=== PATIENT | female | born 1990 | race American Indian/Alaskan Native ===

== ENCOUNTER 2017-05-12 12:20 | Emergency (ER) | payer MEDICAID ==
[2017-05-12 12:42] VITALS: BP 114/75
[2017-05-12 13:49] LABS: Bilirubin,Urine TNR (Negative)
[2017-05-12 13:50] LABS: Blood,Urine TNR (Negative); Ketones,Urine TNR mg/dL (Negative); PH,Urine TNR (5.0-7.0)
[2017-05-12 13:51] LABS: Leukocyte Esterase,Urine TNR (Negative); Nitrite,Urine TNR (Negative); Protein,Urine TNR mg/dL (Negative); RBC,Urine TNR /HPF (0.0-6.0); Renal Epithelial Cells,Urine TNR /LPF; Urobilinogen,Urine TNR mg/dL (<2.0); WBC,Urine TNR /HPF (0.0-6.0)
[2017-05-12 13:52] LABS: Bacteria,Urine TNR /HPF (Negative); Fatty Casts,Urine TNR /LPF; Granular Casts,Urine TNR /LPF; Mucus,Urine TNR /HPF; Red Blood Cell Casts,Urine TNR /LPF; Sperm,Urine TNR /HPF (NP); Trichomonas,Urine TNR /HPF; Uric Acid Crystals,Urine TNR; Waxy Casts,Urine TNR /LPF
[2017-05-12 13:59] LABS: Anion Gap 16 mmol/L; Blood Urea Nitrogen 4 mg/dL (7-17); Calcium 9.1 mg/dL (8.4-10.2); Carbon Dioxide 23 mmol/L (22-30); Chloride 99.3 mmol/L (98-107); Glucose 86 mg/dL (65-100); Potassium 3.6 mmol/L (3.6-5.0); Sodium 135 mmol/L (137-145)
[2017-05-12 14:01] LABS: Basophils % (Auto) 0.5 % (0.0-1.8); Hematocrit 34.9 % (30.3-42.9); Hemoglobin 11.7 gm/dl (10.1-14.3); Mean Corpuscular HGB Conc 34 % (30-34); Mean Corpuscular Hemoglobin 31 pg (28-32); Mean Corpuscular Volume 91 fl (79-97); Platelet Count 183 K/mm3 (140-440); Red Blood Count 3.84 M/mm3 (3.65-5.03); Red Cell Distribution Width 13.3 % (13.2-15.2); White Blood Count 6.1 K/mm3 (4.5-11.0)
--- NOTE | 2017-05-12 15:30 | Ultrasound Report ---
COMPLETE OB ULTRASOUND: well-being. No motion on clinical exam. Gestation: Bray Position: Cephalic Amniotic Fluid: WNL CATHY = N/A cm Placenta: Posterior Placental Grade: 0 Heart Rate: 145 BPM Cervical length: 3.3 cm (Normal > 3 cm) X It is too early for a anatomical survey BPD: 3.6 cm = 17 w 0 d HC: 13.0 cm = 16 w 5 d AC: 10.8 cm = 16 w 5 d FL: 2.3 cm = 17 w 0 d HC/AC Ratio: 1.21 Cephalic Index: 85.2 Estimated Weight: 170 grams LMP: Uncertain Clinical age = 17 w 2 d EDC: 10/18/17 US Gest. Age = 16 w 6 d EDC: 10/21/17
--- NOTE | 2017-05-12 17:34 | Emergency Department Report ---
Entered by RITA HUDSON, acting as scribe for ADAM MARCIAL PA. ED Female HPI - General Chief complaint: Medical Clearance Stated complaint: 17 WKS PREG/NO MOVEMENT Time Seen by Provider: 05/12/17 13:17 Source: patient Mode of arrival: Ambulatory Limitations: No Limitations - History of Present Illness Initial comments: 26 y/o female that is 17 weeks with a PMHx of ovarian cysts presents to the ED c/o no movement that began 2 days ago. Patient states she was sent to the ED by her SERVICES ACCOUNT MANAGER, because there was no provider at the office at the time to evaluate her. Denies any pain, vaginal discharge, vaginal bleeding, dysuria, urinary urgency and frequency, hematuria, fever, chills, back pain, abdominal pain, nausea, vomiting, and diarrhea. Notes she had 2 previous normal US and blood work done at her OB's office. Notes her OB is Dr. Cardenas at [facility]. Reports she had a workup done for STDs, which was normal. NKDA. WOODS Complaint: other (no movement) Onset/Timin -: days(s) Severity scale (0 -10): 0 Improves with: none Worsens with: none Are you Now?: Yes Last Menstrual Period: 11/08/16 EDC: 08/15/17 Associated Symptoms: denies other symptoms. denies: vaginal discharge, vaginal bleeding, abdominal pain, nausea/vomiting, fever/chills, headaches, loss of appetite, dysuria, hematuria, rash, seizure, shortness of breath, syncope, weakness - Related Data Sexually active: Yes Home Medications Medication Instructions Recorded Confirmed Last Taken Ciprofloxacin HCl [Ciprofloxacin 500 mg PO BID 12/08/15 12/08/15 12/07/15 TAB] Allergies Allergy/AdvReac Type Severity Reaction Status Date / Time No Known Allergies Allergy Verified 05/12/17 12:37 ED Review of Systems Comment: All other systems reviewed and negative Constitutional: denies: chills, fever Eyes: denies: eye pain, eye discharge, vision change ENT: denies: ear pain, throat pain Respiratory: denies: cough, orthopnea, shortness of breath, SOB with exertion, SOB at rest, stridor, wheezing Cardiovascular: denies: chest pain, palpitations, dyspnea on exertion, orthopnea , edema, syncope, paroxysmal nocturnal dyspnea Endocrine: no symptoms reported Gastrointestinal: denies: abdominal pain, nausea, vomiting, diarrhea, constipation, hematemesis, melena, hematochezia Genitourinary: denies: urgency, dysuria, frequency, discharge Musculoskeletal: denies: back pain, joint swelling, arthralgia Skin: denies: rash, lesions Neurological: denies: headache, weakness, numbness, paresthesias Psychiatric: denies: anxiety, depression Hematological/Lymphatic: denies: easy bleeding, easy bruising ED Past Medical Hx - Past Medical History Previous Medical History?: No Hx Hypertension: No Hx CVA: No Hx Heart Attack/AMI: No Hx Congestive Heart Failure: No Hx Diabetes: No Hx Deep Vein Thrombosis: No Hx Pulmonary Embolism: No Hx GERD: No Hx Liver Disease: No Hx Renal Disease: No Hx Sickle Cell Disease: No Hx Arthritis: No Hx Headaches / Migraines: No Hx Seizures: No Hx Kidney Stones: No Hx Psychiatric Treatment: No Hx Asthma: No Hx COPD: No Hx Tuberculosis: No Hx Dementia: No Hx HIV: No - Surgical History Past Surgical History?: No Hx Coronary Stent: No Hx Open Heart Surgery: No Hx Pacemaker: No Hx Internal Defibrillator: No Hx Cholecystectomy: No Hx Appendectomy: No Hx Breast Surgery: No - Family History Family history: no significant - Social History Smoking Status: Never Smoker Substance Use Type: None Other Social History: - Medications Home Medications: Home Medications Medication Instructions Recorded Confirmed Last Taken Type Ciprofloxacin HCl [Ciprofloxacin 500 mg PO BID 12/08/15 12/08/15 12/07/15 History TAB] ED Physical Exam - General Limitations: No Limitations General appearance: alert, in no apparent distress - Head Head exam: Present: atraumatic, normocephalic, normal inspection - Eye Eye exam: Present: normal appearance, PERRL, EOMI Pupils: Present: normal accommodation - ENT ENT exam: Present: normal exam, normal orophraynx, mucous membranes moist, TM's normal bilaterally, normal external ear exam - Neck Neck exam: Present: normal inspection, full ROM. Absent: tenderness, meningismus, lymphadenopathy, thyromegaly - Respiratory Respiratory exam: Present: normal lung sounds bilaterally. Absent: respiratory distress, wheezes, rales, rhonchi, stridor, chest wall tenderness, accessory muscle use, decreased breath sounds - Cardiovascular Cardiovascular Exam: Present: regular rate, normal rhythm, normal heart sounds. Absent: systolic murmur, diastolic murmur - GI/Abdominal GI/Abdominal exam: Present: soft, tenderness (RT lower pelvic area tenderness), normal bowel sounds. Absent: distended, guarding, rebound, rigid - External exam: Present: normal external exam. Absent: erythema, swelling, lesions, lacerations, bleeding Speculum exam: Present: normal speculum exam. Absent: erythema, vaginal discharge, cervical discharge, vaginal bleeding, foreign body, tissue, laceration Bi-manual exam: Present: normal bi-manual exam, uterine enlargement. Absent: cervical motion tendernes, adnexal tenderness, adnexal mass, uterine tenderness - Expanded Exam Expanded Female exam: Absent: vaginal laceration, tissue present in vagina, herpetic lesions, vulvar erythema, vulvar tenderness, foreign body External exam: Present: normal Amniotic fluid: Present: none Speculum exam: Present: cervical OS closed - Extremities Exam Extremities exam: Present: normal inspection, full ROM, normal capillary refill. Absent: tenderness, pedal edema, joint swelling, calf tenderness - Back Exam Back exam: Present: normal inspection, full ROM. Absent: tenderness, CVA tenderness (R), CVA tenderness (L), muscle spasm, paraspinal tenderness, vertebral tenderness, rash noted - Neurological Exam Neurological exam: Present: alert, oriented X3, normal gait, reflexes normal. Absent: motor sensory deficit - Psychiatric Psychiatric exam: Present: normal affect, normal mood - Skin Skin exam: Present: warm, dry, intact, normal color. Absent: rash ED Course Vital Signs 05/12/17 12:37 Temperature 98.8 F Pulse Rate 77 Respiratory 20 Rate Blood Pressure 114/75 O2 Sat by Pulse 100 Oximetry - Reevaluation(s) Reevaluation #1: 05/12/17 13:57 Patient awaiting ultrasound. She is stable and lab work ordered and pending Reevaluation #2: 05/12/17 17:20 She has stable ultrasound was done and report given to patient. heart tone is 150 8 bpm via handheld Doppler. heart tones via ultrasound is a 1 45 bpm. ED Medical Decision Making - Lab Data Result diagrams: 05/12/17 13:30 05/12/17 13:30 Lab Results 05/12/17 05/12/17 05/12/17 Range/Units 13:25 13:30 13:30 WBC 6.1 (4.5-11.0) K/mm3 RBC 3.84 (3.65-5.03) M/mm3 Hgb 11.7 (10.1-14.3) gm/dl Hct 34.9 (30.3-42.9) % MCV 91 (79-97) fl MCH 31 (28-32) pg MCHC 34 (30-34) % RDW 13.3 (13.2-15.2) % Plt Count 183 (140-440) K/mm3 Lymph % (Auto) 22.0 (13.4-35.0) % [place] % (Auto) 11.4 H (0.0-7.3) % Eos % (Auto) 3.0 (0.0-4.3) % Baso % (Auto) 0.5 (0.0-1.8) % Lymph # 1.3 (1.2-5.4) K/mm3 [place] # 0.7 (0.0-0.8) K/mm3 Eos # 0.2 (0.0-0.4) K/mm3 Baso # 0.0 (0.0-0.1) K/mm3 Seg Neutrophils % 63.1 (40.0-70.0) % Seg Neutrophils # 3.8 (1.8-7.7) K/mm3 Sodium 135 L (137-145) mmol/L Potassium 3.6 (3.6-5.0) mmol/L Chloride 99.3 (98-107) mmol/L Carbon Dioxide 23 (22-30) mmol/L Anion Gap 16 mmol/L BUN 4 L (7-17) mg/dL Creatinine 0.5 L (0.7-1.2) mg/dL Estimated GFR > 60 ml/min BUN/Creatinine Ratio 8.00 % Glucose 86 (65-100) mg/dL Calcium 9.1 (8.4-10.2) mg/dL HCG, Quant (0-4) mIU/mL Urine Color TNR Urine Turbidity TNR Urine pH TNR Ur Specific Beauty TNR Urine Protein TNR Urine Glucose (UA) TNR Urine Ketones TNR Urine Blood TNR Urine Nitrite TNR Ur Reducing Substances TNR Urine Bilirubin TNR Urine Ictotest TNR Urine Urobilinogen TNR Ur Leukocyte Esterase TNR Urine WBC (Auto) TNR Urine RBC (Auto) TNR U Epithel Cells (Auto) TNR Urine Bacteria (Auto) TNR Urine WBC Clumps TNR Ur Transition Epith Cell TNR Ur Renal Epithelial Cell TNR Calcium Carbonate Cryst TNR Calcium Phosphate Cryst TNR Calcium Oxalate Crystal TNR Cystine Crystals TNR Uric Acid Crystals TNR Triple Phos Crystals TNR Tyrosine Crystals TNR Other Crystals TNR Amorphous Crystals TNR Epithelial Casts TNR Fatty Casts TNR Hyaline Casts TNR Granular Casts TNR Waxy Casts TNR Broad Casts TNR RBC Casts TNR WBC Casts TNR Other Casts TNR Urine Mucus TNR Urine Trichomonas TNR Ur Yeast w Hyphae TNR Urine Yeast (Budding) TNR Urine Sperm TNR 05/12/17 Range/Units 13:30 WBC (4.5-11.0) K/mm3 RBC (3.65-5.03) M/mm3 Hgb (10.1-14.3) gm/dl Hct (30.3-42.9) % MCV (79-97) fl MCH (28-32) pg MCHC (30-34) % RDW (13.2-15.2) % Plt Count (140-440) K/mm3 Lymph % (Auto) (13.4-35.0) % [place] % (Auto) (0.0-7.3) % Eos % (Auto) (0.0-4.3) % Baso % (Auto) (0.0-1.8) % Lymph # (1.2-5.4) K/mm3 [place] # (0.0-0.8) K/mm3 Eos # (0.0-0.4) K/mm3 Baso # (0.0-0.1) K/mm3 Seg Neutrophils % (40.0-70.0) % Seg Neutrophils # (1.8-7.7) K/mm3 Sodium (137-145) mmol/L Potassium (3.6-5.0) mmol/L Chloride (98-107) mmol/L Carbon Dioxide (22-30) mmol/L Anion Gap mmol/L BUN (7-17) mg/dL Creatinine (0.7-1.2) mg/dL Estimated GFR ml/min BUN/Creatinine Ratio % Glucose (65-100) mg/dL Calcium (8.4-10.2) mg/dL HCG, Quant 59517 H (0-4) mIU/mL Urine Color Urine Turbidity Urine pH Ur Specific Beauty Urine Protein Urine Glucose (UA) Urine Ketones Urine Blood Urine Nitrite Ur Reducing Substances Urine Bilirubin Urine Ictotest Urine Urobilinogen Ur Leukocyte Esterase Urine WBC (Auto) Urine RBC (Auto) U Epithel Cells (Auto) Urine Bacteria (Auto) Urine WBC Clumps Ur Transition Epith Cell Ur Renal Epithelial Cell Calcium Carbonate Cryst Calcium Phosphate Cryst Calcium Oxalate Crystal Cystine Crystals Uric Acid Crystals Triple Phos Crystals Tyrosine Crystals Other Crystals Amorphous Crystals Epithelial Casts Fatty Casts Hyaline Casts Granular Casts Waxy Casts Broad Casts RBC Casts WBC Casts Other Casts Urine Mucus Urine Trichomonas Ur Yeast w Hyphae Urine Yeast (Budding) Urine Sperm - Radiology Data Radiology results: report reviewed U/S OB greater than 14 weeks revealed patient with single gestation, cephalic position, I'm them amniotic fluid normal heart rate is 1 45 bpm estimated weight is 170 g clinical age that 17 weeks and 2 days estimated date of delivery is 10/18/2017 - Medical Decision Making . ED Disposition Clinical Impression: Intrauterine , Normal obstetric ultrasound scan in second trimester, Confirm cardiac activity using ultrasound Disposition: DC-01 TO HOME OR SELFCARE Is pt being admited?: No Does the pt Need Aspirin: No Condition: Stable Instructions: (ED) Additional Instructions: Follow up with SERVICES ACCOUNT MANAGER tomorrow Increase your fluid intake Referrals: [facility] [Provider Group] - 05/13/17 Forms: Accompanied Note, Work/School Release Form(ED) This documentation as recorded by the TRISTAN moyer JASMINE,accurately reflects the service I personally performed and the decisions made by me,ADAM MARCIAL PA.
== END 2017-05-12 17:38 | disposition home or self-care (01) ==
LOC: ED 12:20
DX: O36.8120 Decreased fetal movements, second trimester, not applicable or unspecified (principal); Z3A.17 17 weeks gestation of pregnancy
CPT/HCPCS: 36415; 76805; 80048; 81001; 84702; 85025

== ENCOUNTER 2017-07-29 19:15 | Observation (INO) | payer MEDICAID ==
[2017-07-29 20:44] LABS: Bacteria,Urine 2+ /HPF (Negative); Bilirubin,Urine NEG (Negative); Blood,Urine NEG (Negative); Ketones,Urine NEG (Negative); Leukocyte Esterase,Urine TR (Negative); Nitrite,Urine POS (Negative); Protein,Urine <15 mg/dL mg/dL (Negative); Urobilinogen,Urine < 2.0 mg/dL (<2.0)
[2017-07-29] MEDS ORDERED: LACTATED RINGERS 1,000 ML IV ONE (20:47)
[2017-07-29] MEDS ORDERED: TYLENOL PO PRN (21:32)
[2017-07-29] MEDS ORDERED: TYLENOL PO ONE (21:36)
[2017-07-29 22:05] LABS: Basophils % (Auto) 1.7 % (0.0-1.8); Eosinophils % (Auto) 0.6 % (0.0-4.3); Hematocrit 31.5 % (30.3-42.9); Hemoglobin 10.6 gm/dl (10.1-14.3); Mean Corpuscular HGB Conc 34 % (30-34); Mean Corpuscular Hemoglobin 30 pg (28-32); Mean Corpuscular Volume 90 fl (79-97); Platelet Count 156 K/mm3 (140-440); Red Blood Count 3.51 M/mm3 (3.65-5.03); Red Cell Distribution Width 13.9 % (13.2-15.2); White Blood Count 7.8 K/mm3 (4.5-11.0)
[2017-07-29] MEDS ORDERED: COLACE PO PRN (22:51)
[2017-07-29] MEDS ORDERED: ZOFRAN IV PRN (22:51)
[2017-07-29] MEDS ORDERED: AMBIEN PO PRN (22:51)
[2017-07-29] MEDS ORDERED: ALUM-MAG HYDROX-SIMETH 200-200-20MG/5ML PO PRN (22:51)
--- NOTE | 2017-07-29 23:07 | History and Physical Report ---
History of Present Illness Date of examination: 07/29/17 Date of admission: 07/29/17 22:06 Chief complaint: pelvic pain and body aches History of present illness: Pt presents with the above sx. + nitrates and temp noted in triage. Pt admitted for treatment of complicated uti vs pyelo. EDC Calculations LMP: 10/18/2017 EDC Confirmation: 10/18/2017 Gestational Age: 10 weeks Past History : 3 Term Births: 2 Premature Births: 0 Living Children: 2 Para: 2 Mult. Births: 0 Prev : 0 Prev. attempt? 0 Aborta: 0 Elect. Ab: 0 Spont. Ab: 0 Ectopics: 0 # 1 Delivery date: 06/11/2008 Weeks Gestation: 40.5 labor: no Delivery type: Hours of labor: 9 Anesthesia type: none Delivery location: [facility] Sex: Male weight: 7-4 Name: Dwight Comments: Induction # 2 Delivery date: 08/10/2010 Weeks Gestation: 39 Delivery type: Hours of labor: 4 Anesthesia type: none Delivery location: 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 of genital herpes: no Partner hx. of genital herpes: no Genetic History Congenital Heart Defect: Mom: no Dad: no Sonia Disease: Mom: no Dad: no Thalassemia Mom: no Dad: no Neural Tube Defect Mom: no Dad: no Down's Syndrome Mom: no Dad: no Kwame-Sachs Mom: no Dad: no Sickle Cell Disease/Trait Mom: yes Dad: no Comments: Trait Hemophilia Mom: no Dad: no Muscular Dystrophy Mom: no Dad: no Cystic Fibrosis Mom: no Dad: no [place] Chorea Mom: no Dad: no Mental Retardation Mom: no Dad: no Fragile X Mom: no Dad: no Other Genetic/Chromosomal Disorder Mom: no Dad: no Child w/other defect Mom: no Dad: no Enviromental Exposures Xray Exposure: no Medication, drug, or alcohol use since LMP: no Chemical/Other Exposure: no Exposure to Cat Liter: no Active Medications (reviewed today): VITAMIN TABS ( VIT-FE FUMARATE-FA TABS) Current Allergies (reviewed today): No known allergies Past History Past Medical History: no pertinent history Past Surgical History: other (breast lump removed) 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: 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 PAP smear Social history: no significant social history - Obstetrical History Expected Date of Delivery: 10/18/17 Actual Gestation: 28 Week(s) 3 Day(s) : 3 Para: 2 Number of Living Children: 2 Medications and Allergies Allergies Allergy/AdvReac Type Severity Reaction Status Date / Time No Known Allergies Allergy Verified 05/12/17 12:37 Home Medications Medication Instructions Recorded Confirmed Last Taken Type Ciprofloxacin HCl [Ciprofloxacin 500 mg PO BID 12/08/15 12/08/15 12/07/15 History TAB] Active Meds: Active Medications Acetaminophen (Tylenol) 650 mg PO Q4H PRN PRN Reason: Pain MILD(1-3)/Fever >100.5/MARCELO Al Hydrox/Mg Hydrox/Simethicone (Alum-Mag Hydrox-Simeth [id number]/5ml) 30 ml PO Q6H PRN PRN Reason: Indigestion Docusate Sodium (Colace) 100 mg PO Q12H PRN PRN Reason: Constipation Lactated Ringer's (Lactated Ringers) 1,000 mls @ 125 mls/hr IV DIRECT ALBER Ceftriaxone Sodium (Rocephin/Ns 1 Gm/50 Ml) 1 gm in 50 mls @ 100 mls/hr IV Q24HR ALBER PRN Reason: Protocol Multivitamins/Iron/Calcium ( Vitamin) 1 each PO QDAY [facility] Ondansetron HCl (Zofran) 4 mg IV Q6H PRN PRN Reason: Nausea And Vomiting Zolpidem Tartrate (Ambien) 10 mg PO ONCE PRN PRN Reason: Sleep - Vital Signs Vital signs: Vital Signs Temp Pulse Resp BP Pulse Ox 100.3 F H 111 H 16 110/65 88 07/29/17 19:38 07/29/17 19:38 07/29/17 19:38 07/29/17 19:38 07/29/17 19:38 Temp Pulse Resp BP Pulse Ox 100.4 F H 101 H 16 110/57 81 L 07/29/17 22:55 07/29/17 20:51 07/29/17 19:38 07/29/17 20:51 07/29/17 20:40 Results Result Diagrams: 07/29/17 20:30 Abnormal lab results 07/29/17 Range/Units 20:30 RBC 3.51 L (3.65-5.03) M/mm3 Lymph % (Auto) 6.0 L (13.4-35.0) % [place] % (Auto) 13.3 H (0.0-7.3) % Lymph # 0.5 L (1.2-5.4) K/mm3 [place] # 1.0 H (0.0-0.8) K/mm3 Seg Neutrophils % 78.4 H (40.0-70.0) % All other labs normal. Assessment and Plan - Patient Problems (1) UTI (urinary tract infection) during Current Visit: Yes Status: Acute Qualifiers: Trimester: third trimester Qualified Code(s): O23.43 - Unspecified infection of urinary tract in , third trimester Plan to address problem: -send urine cx. Previously had e.coli sensitive to rocephine so started at this time -d/c home with suppressive meds for duration of after 24-48 hours afebrile - monitoring (2) Fever Current Visit: No Status: Acute
[2017-07-29] MEDS: LACTATED RINGERS 1,000 ML IV SCH ×2 (23:09→23:42)
[2017-07-29] MEDS: ROCEPHIN/NS 1 GM/50 ML 1 GM/50 ML BAG IV SCH (23:41)
--- NOTE | 2017-07-30 06:38 | Progress Note ---
Assessment and Plan - Patient Problems (1) Gestational diabetes Onset Date: Unknown Current Visit: Yes Status: Acute Qualifiers: Trimester: third trimester Plan to address problem: Pt is diet controlled. GDM diet ordered. Will schedule BS checks as per her at home regime. (2) UTI (urinary tract infection) during Onset Date: ~07/30/17 Current Visit: Yes Status: Acute Qualifiers: Trimester: third trimester Qualified Code(s): O23.43 - Unspecified infection of urinary tract in , third trimester Plan to address problem: Pt states she is feeling much better No c/o voiced Pt has not had a recorded fever since 2254. Afebrile now VSS. . FHR Cat 1 No CTX recorded. Will cont Rocephin as ordered IUP @ 28 weeks UTI; GDM Consult with . Will start NST qshift; AM care; GDM diet ordered. Subjective - Subjective Date of service: 07/30/17 (pt states she is feeling much better) Principal diagnosis: IUP 28w4d; UTI;GDM(diet control) Patient reports: movement normal Objective - Vital Signs Vital Signs: Vital Signs - 12hr 07/29/17 07/29/17 07/29/17 19:38 19:40 19:44 Temperature 100.3 F H Pulse Rate 111 H 131 H 110 H Respiratory 16 Rate Blood Pressure 110/65 O2 Sat by Pulse 88 95 92 Oximetry 07/29/17 07/29/17 07/29/17 19:46 19:49 19:51 Temperature Pulse Rate 107 H 112 H 112 H Respiratory Rate Blood Pressure O2 Sat by Pulse 96 99 98 Oximetry 07/29/17 07/29/17 07/29/17 19:55 20:00 20:03 Temperature Pulse Rate 112 H 108 H 121 H Respiratory Rate Blood Pressure O2 Sat by Pulse 96 94 95 Oximetry 07/29/17 07/29/17 07/29/17 20:05 20:08 20:13 Temperature Pulse Rate 131 H 136 H 113 H Respiratory Rate Blood Pressure O2 Sat by Pulse 95 95 94 Oximetry 07/29/17 07/29/17 07/29/17 20:14 20:15 20:16 Temperature Pulse Rate 121 H 125 H 127 H Respiratory Rate Blood Pressure O2 Sat by Pulse 93 94 92 Oximetry 07/29/17 07/29/17 07/29/17 20:17 20:19 20:21 Temperature Pulse Rate 102 H 115 H 107 H Respiratory Rate Blood Pressure O2 Sat by Pulse 92 90 82 L Oximetry 07/29/17 07/29/17 07/29/17 20:23 20:24 20:25 Temperature Pulse Rate 112 H 112 H 125 H Respiratory Rate Blood Pressure O2 Sat by Pulse 82 L 83 L 87 Oximetry 07/29/17 07/29/17 07/29/17 20:30 20:31 20:33 Temperature Pulse Rate 108 H 110 H 214 H Respiratory Rate Blood Pressure O2 Sat by Pulse 96 81 L 82 L Oximetry 07/29/17 07/29/17 07/29/17 20:34 20:35 20:36 Temperature Pulse Rate 156 H 150 H 133 H Respiratory Rate Blood Pressure O2 Sat by Pulse 82 L 81 L 82 L Oximetry 07/29/17 07/29/17 07/29/17 20:37 20:38 20:39 Temperature Pulse Rate 208 H 113 H 163 H Respiratory Rate Blood Pressure O2 Sat by Pulse 82 L 94 81 L Oximetry 07/29/17 07/29/17 07/29/17 20:40 20:51 22:55 Temperature 100.4 F H Pulse Rate 250 H 101 H Respiratory Rate Blood Pressure 110/57 O2 Sat by Pulse 81 L Oximetry 07/30/17 07/30/17 07/30/17 02:09 02:30 05:06 Temperature 98.7 F 99.3 F Pulse Rate 93 H 91 H Respiratory 18 Rate Blood Pressure 117/60 98/52 O2 Sat by Pulse Oximetry - Exam Breasts: deferred Cardiovascular: Regular rate Lungs: Normal air movement Abdomen: Present: normal appearance, soft. Absent: distention, tenderness Uterus: Present: normal FHR: auscultation normal, category 1 Uterine Contraction Monitor Mode: External Uterine Contraction Frequency (min): 0 Uterine Contraction Pattern: Absent Uterine Tone Measurement Phase: Resting Extremities: normal Deep Tendon Reflex Grade: Normal +2 - Labs Labs: Abnormal Labs 07/29/17 20:30 RBC 3.51 L Lymph % (Auto) 6.0 L [place] % (Auto) 13.3 H Lymph # 0.5 L [place] # 1.0 H Seg Neutrophils % 78.4 H Laboratory Results - last 24 hr 07/29/17 07/29/17 07/29/17 20:00 20:30 21:00 WBC 7.8 RBC 3.51 L Hgb 10.6 Hct 31.5 MCV 90 MCH 30 MCHC 34 RDW 13.9 Plt Count 156 Lymph % (Auto) 6.0 L [place] % (Auto) 13.3 H Eos % (Auto) 0.6 Baso % (Auto) 1.7 Lymph # 0.5 L [place] # 1.0 H Eos # 0.0 Baso # 0.1 Seg Neutrophils % 78.4 H Seg Neutrophils # 6.1 POC Glucose 97 Urine Color Yellow Urine Turbidity Clear Urine pH 7.0 Ur Specific [place] 1.010 Urine Protein <15 mg/dl Urine Glucose (UA) Neg Urine Ketones Neg Urine Blood Neg Urine Nitrite Pos Urine Bilirubin Neg Urine Urobilinogen < 2.0 Ur Leukocyte Esterase Tr Urine WBC (Auto) 5.0 Urine RBC (Auto) 3.0 Urine Bacteria (Auto) 2+
[2017-07-30] MEDS ORDERED: PRENATAL VITAMIN PO SCH (10:00)
[2017-07-30] MEDS: LACTATED RINGERS 1,000 ML IV SCH (10:12)
[2017-07-30] MEDS: ROCEPHIN/NS 1 GM/50 ML 1 GM/50 ML BAG IV SCH (10:12)
[2017-07-30 16:21] VITALS: BP 98/56
--- NOTE | 2017-07-30 16:53 | Discharge Summary ---
Providers - Providers Date of Admission: 07/29/17 22:06 Date of discharge: 07/30/17 (pt agrees with d/c) Attending physician: NICK HIGGINBOTHAM Primary care physician: NICK HIGGINBOTHAM Hospitalization Reason for admission: other (cystitis) Hospital course: treatment of cystitis; febrile on admission pt states she agrees with d/c. RX Macrobid for treatment and suppressive therapy. Pt will keep her appt as scheduled for 08-02-17 all questions addressed Condition at discharge: Good Disposition: DC-01 TO HOME OR SELFCARE - Discharge Diagnoses (1) Gestational diabetes Status: Acute Qualifiers: Trimester: third trimester Comment: continue diet and BS checks; f/u with AMFM as scheduled (2) UTI (urinary tract infection) during Status: Acute Qualifiers: Trimester: third trimester Qualified Code(s): O23.43 - Unspecified infection of urinary tract in , third trimester Comment: take Macrobid as prescribed Keep PN appt on 08-02-17 Plan - Discharge Medications Prescriptions: Nitrofurantoin [place]/M-Cryst [Macrobid] 100 mg PO Q12HR #10 capsule Nitrofurantoin [place]/M-Cryst [Macrobid] 100 mg PO QDAY #30 capsule - Provider Discharge Summary Activity: routine Diet: other (GDM) Instructions: routine Additional instructions: [] Smoking cessation referral if applicable(refer to patient education folder for contact #) [] Refer to [facility] Booklet Call your doctor immediately for: * Fever > 100.5 * Heavy vaginal bleeding ( >1 pad per hour) * Severe persistent headache * Shortness of breath * Reddened, hot, painful area to leg or breast * Drainage or odor from incision. * Keep incision clean and dry at all times and follow doctor's instructions regarding bathing/showering - Follow up plan Follow up: NICK HIGGINBOTHAM MD [Primary Care Provider] - 08/02/17 (keep appointment with [facility] on 08-02-17 take Macrobid as prescribed call with concerns take Tylenol for any fever, aches, chills)
== END 2017-07-30 18:00 | disposition home or self-care (01) ==
LOC: TRG 19:15 → LD 22:06
PROVIDERS: ADMIT Obstetrics & Gynecology; ATTEND Obstetrics & Gynecology
DX: O24.410 Gestational diabetes mellitus in pregnancy, diet controlled (principal); O23.43 Unspecified infection of urinary tract in pregnancy, third trimester; O26.893 Other specified pregnancy related conditions, third trimester; R50.9 Fever, unspecified; Z3A.28 28 weeks gestation of pregnancy
CPT/HCPCS: 36415; 81001; 82962; 85025; 87076; 87086; 87186; 96361; 96365; 96375; G0378; J0696; J7120

== ENCOUNTER 2017-08-24 11:33 | Outpatient (CLI) | payer MEDICAID ==
[2017-08-24 12:05] VITALS: BP 114/74
--- NOTE | 2017-08-24 13:41 | Ultrasound Report ---
BIOPHYSICAL PROFILE: History: well being. Intrauterine growth retardation. 2 - breathing movements 2 - movements 2 - posture and tone 2 - Qualitative amniotic fluid volume 8 - TOTAL SCORE OF POSSIBLE 8 Heart Rate (bpm) 136
--- NOTE | 2017-08-25 07:39 | Ultrasound Report ---
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 FINDINGS: Transabdominal ultrasound with spectral Doppler interrogation was performed on 3 segments of the cord. heart rate measures 136 beats per minute. The spectral waveforms are normal and persistent. The systolic/diastolic ratio measures 2.8. The resistive index average measures 0.62. IMPRESSION: No abnormality identified.
== END 2017-08-24 15:38 | disposition home or self-care (01) ==
LOC: TRG 11:33
PROVIDERS: ATTEND Obstetrics & Gynecology
DX: O24.410 Gestational diabetes mellitus in pregnancy, diet controlled (principal); O47.03 False labor before 37 completed weeks of gestation, third trimester; Z3A.32 32 weeks gestation of pregnancy
CPT/HCPCS: 59025; 76819; 76820

== ENCOUNTER 2017-09-14 02:12 | Outpatient (CLI) | payer MEDICAID ==
[2017-09-14] MEDS ORDERED: LACTATED RINGERS 500 ML IV ONE (03:03)
--- NOTE | 2017-09-14 06:00 | Ultrasound Report ---
FINAL REPORT EXAM: US OB LIMITED HISTORY: CATHY TECHNIQUE: A limited OB sonogram was obtained for evaluation of the CATHY, position and biophysical profile. FINDINGS: The fetus is in breech presentation. heart rate is 133 BPM. The total L5 for all 4 quadrants is 8.9 centimeters. For the biophysical profile, for breathing movements a score of 2 out of 2 was obtained. For movements, a total score of 2 out of 2 was obtained For posture in tone, a total score of 2 out of 2 was obtained. The qualitative amniotic fluid volume score was 2 out of 2. The total biophysical profile score is 8 out of 8. IMPRESSION: Total biophysical profile score of 8 out of 8 as described.
--- NOTE | 2017-09-14 09:50 | Ultrasound Report ---
FINAL REPORT EXAM: US OB BPP WO NON-STRESS HISTORY: WELL BEING TECHNIQUE: Sonographic biophysical profile performed PRIORS: None. FINDINGS: There is a single live intrauterine of approximately 35 weeks 1 day according to the provided LUZ MARIA of 10/18/2017. position is the for the. The placenta is the breech. Amniotic fluid volume is normal. Largest pocket is 3.6 cm.. cardiac activity is measured at 133 bpm. biophysical profile: breathing movements: 2 Gross body movements: 2 tone: 2 Amniotic fluid volume: 2 Score: 8 out of 8. IMPRESSION: Normal biophysical profile scoring 8 out of 8
== END 2017-09-14 06:49 | disposition home or self-care (01) ==
LOC: TRG 02:12
PROVIDERS: ATTEND Obstetrics & Gynecology
DX: O32.1XX0 Maternal care for breech presentation, not applicable or unspecified (principal); Z3A.35 35 weeks gestation of pregnancy
CPT/HCPCS: 59025; 76815; 76819; 82962; J7120

== ENCOUNTER 2017-10-11 11:30 | Inpatient (IN) | payer MEDICAID ==
[~2017-10-11 11:30] MED LIST: ANCEF/STERILE WATER 2 GM/20 ML 2 GM/20 ML SYRINGE IV NR; BICITRA PO SCH; LACTATED RINGERS 1,000 ML IV SCH; PEPCID IV SCH; PITOCin/NS 20 UNIT/1000ML DRIP 20 UNITS/1,000 ML BAG IV SCH; REGLAN IV SCH
[2017-10-12 21:42] LABS: Basophils # (Auto) 0.1 K/mm3 (0.0-0.1); Basophils % (Auto) 0.7 % (0.0-1.8); Eosinophils # (Auto) 0.2 K/mm3 (0.0-0.4); Eosinophils % (Auto) 2.1 % (0.0-4.3); Hematocrit 32.5 % (30.3-42.9); Hemoglobin 11.2 gm/dl (10.1-14.3); Lymphocytes # (Auto) 1.6 K/mm3 (1.2-5.4); Lymphocytes % (Auto) 19.1 % (13.4-35.0); Mean Corpuscular HGB Conc 34 % (30-34); Mean Corpuscular Hemoglobin 30 pg (28-32); Mean Corpuscular Volume 87 fl (79-97); Monocytes % (Auto) 12.1 % (0.0-7.3); Platelet Count 187 K/mm3 (140-440); Red Blood Count 3.76 M/mm3 (3.65-5.03); Red Cell Distribution Width 14.9 % (13.2-15.2)
[2017-10-12] MEDS: LACTATED RINGERS 1,000 ML IV SCH (23:54)
--- NOTE | 2017-10-13 00:11 | Ultrasound Report ---
FINAL REPORT EXAM: US OB LIMITED HISTORY: presentation TECHNIQUE: A limited OB sonogram was obtained for evaluation of position. FINDINGS: There is a single intrauterine in breech presentation. The heart is 141 BPM. IMPRESSION: Breech presentation. heart rate is 141 BPM.
--- NOTE | 2017-10-13 00:26 | History and Physical Report ---
History of Present Illness Date of admission: 10/12/17 20:25 Chief complaint: IUP@39 weeks, IUGR, breech, GDM History of present illness: Past History : 3 Term Births: 2 Premature Births: 0 Living Children: 2 Para: 2 Mult. Births: 0 Prev : 0 Prev. attempt? 0 Aborta: 0 Elect. Ab: 0 Spont. Ab: 0 Ectopics: 0 # 1 Delivery date: 06/11/2008 Weeks Gestation: 40.5 labor: no Delivery type: Hours of labor: 9 Anesthesia type: none Delivery location: [facility] Sex: Male weight: 7-4 Name: Dwight Comments: Induction # 2 Delivery date: 08/10/2010 Weeks Gestation: 39 Delivery type: Hours of labor: 4 Anesthesia type: none Delivery location: [facility] [place] Sex: Female weight: 7-8 Name: Yolis Past Medical History: Negative Past Medical History Past Surgical History: Breast Lumpectomy: (2011) Fibroadenoma Family History Summary: Mother (biol.) - Has No Family History of Ovarvian Cancer - Entered On: 2016 Mother (biol.) - Has No Family History of Colon Cancer - Entered On: 03/22/2017 Mother (biol.) - Has No Family History of Breast Cancer - Entered On: 03/22/2017 Mother (biol.) - Has Family History of Hypertension - Entered On: 03/22/2017 Mother (biol.) - Has Family History of Diabetes - Entered On: 03/22/2017 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 of genital herpes: no Partner hx. of genital herpes: no Genetic History Congenital Heart Defect: Mom: no Dad: no Sonia Disease: Mom: no Dad: no Thalassemia Mom: no Dad: no Neural Tube Defect Mom: no Dad: no Down's Syndrome Mom: no Dad: no Kwame-Sachs Mom: no Dad: no Sickle Cell Disease/Trait Mom: yes Dad: no Comments: Trait Hemophilia Mom: no Dad: no Muscular Dystrophy Mom: no Dad: no Cystic Fibrosis Mom: no Dad: no [place] Chorea Mom: no Dad: no Mental Retardation Mom: no Dad: no Fragile X Mom: no Dad: no Other Genetic/Chromosomal Disorder Mom: no Dad: no Child w/other defect Mom: no Dad: no Enviromental Exposures Xray Exposure: no Medication, drug, or alcohol use since LMP: no Chemical/Other Exposure: no Exposure to Cat Liter: no Active Medications (reviewed today): VITAMIN TABS ( VIT-FE FUMARATE-FA TABS) Current Allergies (reviewed today): No known allergies Past History - Obstetrical History Expected Date of Delivery: 10/18/17 Actual Gestation: 39 Week(s) 2 Day(s) : 3 Medications and Allergies Allergies Allergy/AdvReac Type Severity Reaction Status Date / Time No Known Allergies Allergy Verified 05/12/17 12:37 Home Medications Medication Instructions Recorded Confirmed Last Taken Type Ciprofloxacin HCl [Ciprofloxacin 500 mg PO BID 12/08/15 12/08/15 12/07/15 History TAB] Nitrofurantoin [place]/M-Cryst 100 mg PO Q12HR #10 capsule 07/30/17 Unknown Rx [Macrobid] Nitrofurantoin [place]/M-Cryst 100 mg PO QDAY #30 capsule 07/30/17 Unknown Rx [Macrobid] Active Meds: Active Medications Citric Acid/Sodium Citrate (Bicitra) 30 ml PO ONCE NR Stop: 10/13/17 23:45 Famotidine (Pepcid) 20 mg IV ONCE NR Stop: 10/13/17 23:45 Cefazolin Sodium (Ancef/Sterile Water 2 Gm/20 Ml) 2 gm in 20 mls @ 80 mls/hr IV PREOP NR PRN Reason: Protocol Stop: 10/13/17 23:45 Lactated Ringer's (Lactated Ringers) 2,250 mls @ 2,250 mls/hr IV PREOP ALBER Stop: 10/14/17 06:29 Lactated Ringer's (Lactated Ringers) 1,000 mls @ 125 mls/hr IV DIRECT ALBER Last Admin: 10/12/17 23:54 Dose: 125 mls/hr Oxytocin/Sodium Chloride (Pitocin/Ns 20 Unit/1000ml Drip) 20 units in 1,000 mls @ 0 mls/hr IV TITR ALBER PRN Reason: As Directed Metoclopramide HCl (Reglan) 10 mg IV ONCE NR Stop: 10/13/17 23:45 Review of Systems All systems: negative - Vital Signs Vital signs: Vital Signs Pulse BP 79 128/79 10/12/17 20:45 10/12/17 20:45 Temp Pulse Resp BP Pulse Ox 98.1 F 86 12 114/69 97 10/12/17 20:57 10/13/17 00:21 10/12/17 20:57 10/13/17 00:07 10/13/17 00:21 - Physical Exam Breasts: Positive: deferred Cardiovascular: Regular rate Lungs: Positive: Normal air movement Abdomen: Positive: normal appearance - Obstetrical Uterine Contraction Monitor Mode: External Uterine Contraction Pattern: Absent Results Result Diagrams: 10/11/17 21:10 Abnormal lab results 10/11/17 10/12/17 Range/Units 21:10 23:09 [place] % (Auto) 12.1 H (0.0-7.3) % [place] # 1.0 H (0.0-0.8) K/mm3 POC Glucose 107 H (70-105) All other labs normal. Assessment and Plan - Patient Problems (1) 39 weeks gestation of Current Visit: Yes Status: Acute (2) Breech presentation Current Visit: Yes Status: Acute Qualifiers: Fetus number: single or unspecified fetus Qualified Code(s): O32.1XX0 - Maternal care for breech presentation, not applicable or unspecified Plan to address problem: Patient requesting ECV. Last available MFM noted (09/30/2017) reviewed and discuss with patient and her . MFM note dated 09/30/2017 recommends C/S if breech. Patient states MFM note dated 10/06/2017 reveals cephalic and IUGR resolved, records not available. Contraindications and risks associated with ECV explained. She desires review of MFM note from visit on 10/06/2017 to determine if IUGR resolved then she will discuss ECV vs c/s if still breech. Will attempt to obtain report in am. Observe closely (3) Unstable lie of fetus Current Visit: Yes Status: Acute Qualifiers: Fetus number: single or unspecified fetus Qualified Code(s): O32.0XX0 - Maternal care for unstable lie, not applicable or unspecified (4) IUGR (intrauterine growth restriction) Current Visit: Yes Status: Acute Plan to address problem: Continue monitoring (5) Gestational diabetes Onset Date: Unknown Current Visit: No Status: Acute Qualifiers: Gestational diabetes mellitus control: diet-controlled Trimester: third trimester Qualified Code(s): O24.410 - Gestational diabetes mellitus in , diet controlled Plan to address problem: Accucheck q6hr
[2017-10-13] MEDS: LACTATED RINGERS 1,000 ML IV SCH (02:14)
[2017-10-13] MEDS ORDERED: PITOCin/NS 20 UNIT/1000ML DRIP 20 UNITS/1,000 ML BAG IV SCH ×2 (05:30→12:00)
[2017-10-13] MEDS ORDERED: REGLAN IV NR (05:30)
[2017-10-13] MEDS ORDERED: LACTATED RINGERS IV SCH (05:30)
[2017-10-13] MEDS ORDERED: ANCEF/STERILE WATER 2 GM/20 ML 2 GM/20 ML SYRINGE IV NR (05:30)
[2017-10-13] MEDS ORDERED: BICITRA PO NR (05:30)
[2017-10-13] MEDS ORDERED: PEPCID IV NR (05:30)
[2017-10-13 06:54] LABS: Basophils % (Auto) 0.3 % (0.0-1.8); Eosinophils # (Auto) 0.2 K/mm3 (0.0-0.4); Eosinophils % (Auto) 2.5 % (0.0-4.3); Hematocrit 30.4 % (30.3-42.9); Hemoglobin 10.1 gm/dl (10.1-14.3); Lymphocytes # (Auto) 1.9 K/mm3 (1.2-5.4); Lymphocytes % (Auto) 22.3 % (13.4-35.0); Mean Corpuscular HGB Conc 33 % (30-34); Mean Corpuscular Hemoglobin 29 pg (28-32); Mean Corpuscular Volume 87 fl (79-97); Monocytes # (Auto) 1.2 K/mm3 (0.0-0.8); Monocytes % (Auto) 14.2 % (0.0-7.3); Platelet Count 158 K/mm3 (140-440); Red Blood Count 3.49 M/mm3 (3.65-5.03); Red Cell Distribution Width 14.7 % (13.2-15.2)
--- NOTE | 2017-10-13 07:52 | Progress Note ---
Assessment and Plan - Patient Problems (1) 39 weeks gestation of Current Visit: Yes Status: Acute (2) Breech presentation Current Visit: Yes Status: Acute Qualifiers: Fetus number: single or unspecified fetus Qualified Code(s): O32.1XX0 - Maternal care for breech presentation, not applicable or unspecified (3) IUGR (intrauterine growth restriction) Current Visit: Yes Status: Acute (4) Gestational diabetes Onset Date: Unknown Current Visit: No Status: Acute Qualifiers: Gestational diabetes mellitus control: diet-controlled Trimester: third trimester Qualified Code(s): O24.410 - Gestational diabetes mellitus in , diet controlled Subjective - Subjective Date of service: 10/13/17 Principal diagnosis: IUP@39 wga, IUGR, GDM, sickle cell trait Interval history: Report from [facility] received and reviewed with patient and her , last EFW was 3% on 09/30/2017. US this am still breech. Again explained IUGR and risks with ECV, she voiced understanding and agrees to proceed with C/S. Consent reviewed and signed. Patient reports: no new complaints Objective - Vital Signs Vital Signs: Vital Signs - 12hr 10/12/17 10/12/17 10/12/17 20:45 20:46 20:51 Temperature Pulse Rate 79 93 H 102 H Respiratory Rate Blood Pressure 128/79 Blood Pressure [Left] O2 Sat by Pulse 99 98 Oximetry 10/12/17 10/12/17 10/12/17 20:56 20:57 21:01 Temperature 98.1 F Pulse Rate 81 90 91 H Respiratory 12 Rate Blood Pressure Blood Pressure 128/79 [Left] O2 Sat by Pulse 97 97 98 Oximetry 10/12/17 10/12/17 10/12/17 21:06 21:11 21:16 Temperature Pulse Rate 96 H 92 H 91 H Respiratory Rate Blood Pressure Blood Pressure [Left] O2 Sat by Pulse 98 97 97 Oximetry 10/12/17 10/12/17 10/12/17 21:21 21:26 21:31 Temperature Pulse Rate 95 H 92 H 83 Respiratory Rate Blood Pressure Blood Pressure [Left] O2 Sat by Pulse 97 97 97 Oximetry 10/12/17 10/12/17 10/12/17 21:36 21:41 21:46 Temperature Pulse Rate 91 H 88 87 Respiratory Rate Blood Pressure Blood Pressure [Left] O2 Sat by Pulse 97 98 96 Oximetry 10/12/17 10/12/17 10/12/17 21:51 21:56 22:01 Temperature Pulse Rate 92 H 92 H 89 Respiratory Rate Blood Pressure Blood Pressure [Left] O2 Sat by Pulse 97 97 98 Oximetry 10/12/17 10/12/17 10/12/17 22:06 22:11 22:16 Temperature Pulse Rate 97 H 89 94 H Respiratory Rate Blood Pressure Blood Pressure [Left] O2 Sat by Pulse 97 98 97 Oximetry 10/12/17 10/12/17 10/12/17 22:21 22:26 22:31 Temperature Pulse Rate 88 110 H 87 Respiratory Rate Blood Pressure Blood Pressure [Left] O2 Sat by Pulse 97 97 98 Oximetry 10/12/17 10/12/17 10/12/17 22:36 22:41 22:46 Temperature Pulse Rate 92 H 92 H 83 Respiratory Rate Blood Pressure Blood Pressure [Left] O2 Sat by Pulse 97 97 97 Oximetry 10/12/17 10/12/17 10/12/17 22:51 22:56 23:01 Temperature Pulse Rate 94 H 85 87 Respiratory Rate Blood Pressure Blood Pressure [Left] O2 Sat by Pulse 96 96 96 Oximetry 10/12/17 10/12/17 10/12/17 23:06 23:11 23:16 Temperature Pulse Rate 83 90 82 Respiratory Rate Blood Pressure Blood Pressure [Left] O2 Sat by Pulse 96 96 97 Oximetry 10/12/17 10/12/17 10/12/17 23:21 23:26 23:31 Temperature Pulse Rate 79 87 82 Respiratory Rate Blood Pressure Blood Pressure [Left] O2 Sat by Pulse 97 98 97 Oximetry 10/12/17 10/12/17 10/12/17 23:32 23:36 23:41 Temperature Pulse Rate 80 83 79 Respiratory Rate Blood Pressure 132/81 Blood Pressure [Left] O2 Sat by Pulse 97 98 Oximetry 10/12/17 10/12/17 10/12/17 23:46 23:51 23:56 Temperature Pulse Rate 82 78 80 Respiratory Rate Blood Pressure Blood Pressure [Left] O2 Sat by Pulse 97 97 99 Oximetry 10/13/17 10/13/17 10/13/17 00:01 00:06 00:07 Temperature Pulse Rate 99 H 82 75 Respiratory Rate Blood Pressure 114/69 Blood Pressure [Left] O2 Sat by Pulse 98 97 Oximetry 10/13/17 10/13/1710/13/18 00:11 00:16 00:21 Temperature Pulse Rate 85 76 86 Respiratory Rate Blood Pressure Blood Pressure [Left] O2 Sat by Pulse 97 97 97 Oximetry 10/13/17 10/13/17 10/13/17 00:26 00:32 01:31 Temperature Pulse Rate 71 81 76 Respiratory Rate Blood Pressure 112/55 105/55 Blood Pressure [Left] O2 Sat by Pulse 97 Oximetry 10/13/17 10/13/17 10/13/17 01:45 01:50 01:55 Temperature Pulse Rate 81 83 82 Respiratory Rate Blood Pressure Blood Pressure [Left] O2 Sat by Pulse 96 96 96 Oximetry 10/13/17 10/13/17 10/13/17 02:00 02:05 02:10 Temperature Pulse Rate 82 81 83 Respiratory Rate Blood Pressure Blood Pressure [Left] O2 Sat by Pulse 96 95 96 Oximetry 10/13/17 10/13/17 10/13/17 02:15 02:20 02:25 Temperature Pulse Rate 81 82 83 Respiratory Rate Blood Pressure Blood Pressure [Left] O2 Sat by Pulse 96 96 96 Oximetry 10/13/17 10/13/17 10/13/17 02:30 02:31 02:35 Temperature Pulse Rate 97 H 85 85 Respiratory Rate Blood Pressure 101/55 Blood Pressure [Left] O2 Sat by Pulse 95 96 Oximetry 10/13/17 10/13/17 10/13/17 02:40 02:45 02:50 Temperature Pulse Rate 87 83 79 Respiratory Rate Blood Pressure Blood Pressure [Left] O2 Sat by Pulse 96 96 96 Oximetry 10/13/17 10/13/17 10/13/17 02:55 03:00 03:05 Temperature Pulse Rate 91 H 75 85 Respiratory Rate Blood Pressure Blood Pressure [Left] O2 Sat by Pulse 96 96 96 Oximetry 10/13/17 10/13/17 10/13/17 03:10 03:15 03:20 Temperature Pulse Rate 82 82 84 Respiratory Rate Blood Pressure Blood Pressure [Left] O2 Sat by Pulse 96 95 96 Oximetry 10/13/17 10/13/17 10/13/17 03:25 03:26 03:30 Temperature Pulse Rate 81 75 81 Respiratory Rate Blood Pressure Blood Pressure [Left] O2 Sat by Pulse 95 94 95 Oximetry 10/13/17 10/13/17 10/13/17 03:31 03:35 03:40 Temperature Pulse Rate 94 H 88 80 Respiratory Rate Blood Pressure 112/67 Blood Pressure [Left] O2 Sat by Pulse 95 95 Oximetry 10/13/17 10/13/17 10/13/17 03:45 03:50 03:55 Temperature Pulse Rate 98 H 80 80 Respiratory Rate Blood Pressure Blood Pressure [Left] O2 Sat by Pulse 96 95 96 Oximetry 10/13/17 10/13/17 10/13/17 04:00 04:05 04:10 Temperature Pulse Rate 88 82 77 Respiratory Rate Blood Pressure Blood Pressure [Left] O2 Sat by Pulse 96 95 95 Oximetry 10/13/17 10/13/17 10/13/17 04:15 04:20 04:24 Temperature Pulse Rate 82 79 85 Respiratory Rate Blood Pressure Blood Pressure [Left] O2 Sat by Pulse 96 96 94 Oximetry 10/13/17 10/13/17 10/13/17 04:25 04:30 04:32 Temperature Pulse Rate 93 H 95 H 83 Respiratory Rate Blood Pressure 109/67 Blood Pressure [Left] O2 Sat by Pulse 95 95 Oximetry 10/13/17 10/13/17 10/13/17 04:35 04:40 04:45 Temperature Pulse Rate 96 H 78 93 H Respiratory Rate Blood Pressure Blood Pressure [Left] O2 Sat by Pulse 95 96 96 Oximetry 10/13/17 10/13/17 10/13/17 04:50 04:55 05:00 Temperature Pulse Rate 75 75 85 Respiratory Rate Blood Pressure Blood Pressure [Left] O2 Sat by Pulse 95 96 97 Oximetry 10/13/17 10/13/17 10/13/17 05:05 05:10 05:15 Temperature Pulse Rate 74 74 72 Respiratory Rate Blood Pressure Blood Pressure [Left] O2 Sat by Pulse 96 96 94 Oximetry 10/13/17 10/13/17 10/13/17 05:20 05:25 05:30 Temperature Pulse Rate 81 85 95 H Respiratory Rate Blood Pressure Blood Pressure [Left] O2 Sat by Pulse 96 96 97 Oximetry 10/13/17 10/13/17 10/13/17 05:33 05:35 05:40 Temperature Pulse Rate 75 81 88 Respiratory Rate Blood Pressure 101/64 Blood Pressure [Left] O2 Sat by Pulse 97 97 Oximetry 10/13/17 10/13/17 10/13/17 05:45 05:50 05:55 Temperature Pulse Rate 89 83 87 Respiratory Rate Blood Pressure Blood Pressure [Left] O2 Sat by Pulse 96 97 96 Oximetry 10/13/17 10/13/17 10/13/17 06:00 06:05 06:10 Temperature Pulse Rate 93 H 94 H 76 Respiratory Rate Blood Pressure Blood Pressure [Left] O2 Sat by Pulse 96 96 96 Oximetry 10/13/17 10/13/17 10/13/17 06:15 06:20 06:25 Temperature Pulse Rate 81 86 88 Respiratory Rate Blood Pressure Blood Pressure [Left] O2 Sat by Pulse 97 97 97 Oximetry 10/13/17 10/13/17 10/13/17 06:30 06:31 06:35 Temperature Pulse Rate 82 82 73 Respiratory Rate Blood Pressure 107/63 Blood Pressure [Left] O2 Sat by Pulse 97 96 Oximetry 10/13/17 10/13/17 10/13/17 06:40 06:45 06:50 Temperature Pulse Rate 76 80 81 Respiratory Rate Blood Pressure Blood Pressure [Left] O2 Sat by Pulse 97 97 97 Oximetry 10/13/17 10/13/17 10/13/17 06:55 07:00 07:05 Temperature Pulse Rate 77 74 75 Respiratory Rate Blood Pressure Blood Pressure [Left] O2 Sat by Pulse 96 96 95 Oximetry 10/13/17 10/13/17 10/13/17 07:10 07:15 07:20 Temperature Pulse Rate 88 78 83 Respiratory Rate Blood Pressure Blood Pressure [Left] O2 Sat by Pulse 98 97 99 Oximetry 10/13/17 10/13/17 10/13/17 07:25 07:30 07:31 Temperature Pulse Rate 93 H 88 83 Respiratory Rate Blood Pressure 115/65 Blood Pressure [Left] O2 Sat by Pulse 99 97 Oximetry 10/13/17 10/13/17 10/13/17 07:35 07:40 07:45 Temperature Pulse Rate 77 87 73 Respiratory Rate Blood Pressure Blood Pressure [Left] O2 Sat by Pulse 98 98 99 Oximetry 10/13/17 07:50 Temperature Pulse Rate 83 Respiratory Rate Blood Pressure Blood Pressure [Left] O2 Sat by Pulse 98 Oximetry - Exam FHR: category 1 - Labs Labs: Abnormal Labs 10/11/17 10/12/17 10/13/17 21:10 23:09 06:19 RBC 3.49 L [place] % (Auto) 12.1 H 14.2 H [place] # 1.0 H 1.2 H POC Glucose 107 H Laboratory Results - last 24 hr 10/11/17 10/12/17 10/13/17 21:10 23:09 00:00 WBC 8.2 RBC 3.76 Hgb 11.2 Hct 32.5 MCV 87 MCH 30 MCHC 34 RDW 14.9 Plt Count 187 Lymph % (Auto) 19.1 [place] % (Auto) 12.1 H Eos % (Auto) 2.1 Baso % (Auto) 0.7 Lymph # 1.6 [place] # 1.0 H Eos # 0.2 Baso # 0.1 Seg Neutrophils % 66.0 Seg Neutrophils # 5.4 POC Glucose 107 H Blood Type O POSITIVE Antibody Screen Negative 10/13/17 06:19 WBC 8.6 RBC 3.49 L Hgb 10.1 Hct 30.4 MCV 87 MCH 29 MCHC 33 RDW 14.7 Plt Count 158 Lymph % (Auto) 22.3 [place] % (Auto) 14.2 H Eos % (Auto) 2.5 Baso % (Auto) 0.3 Lymph # 1.9 [place] # 1.2 H Eos # 0.2 Baso # 0.0 Seg Neutrophils % 60.7 Seg Neutrophils # 5.2 POC Glucose Blood Type Antibody Screen
--- NOTE | 2017-10-13 07:57 | Anesthesia Consultation ---
Anesthesia Consult and Med Hx Date of service: 10/13/17 - Airway Anesthetic Teeth Evaluation: Good ROM Head & Neck: Adequate Mental/Hyoid Distance: Adequate Mallampati Class: Class II Intubation Access Assessment: Probably Good - Pre-Operative Health Status ASA Pre-Surgery Classification: ASA2 Proposed Anesthetic Plan: Epidural, Spinal - Pulmonary Hx Asthma: No COPD: No Hx Pneumonia: No - Cardiovascular System Hx Hypertension: No Hx Heart Attack/AMI: No Hx Pacemaker: No Hx Internal Defibrillator: No - Central Nervous System Hx Seizures: No Hx Psychiatric Problems: No - Endocrine Hx Renal Disease: No Hx End Stage Renal Disease: No Hx Liver Disease: No Hx Hypothyroidism: No Hx Hyperthyroidism: No - Hematic Hx Anemia: No Hx Sickle Cell Disease: Yes (trait) - Other Systems Hx Alcohol Use: Yes (not while )
--- NOTE | 2017-10-13 07:58 | Anesthesia Day of Surgery ---
Anesthesia Day of Surgery - Day of Surgery Patient Examined: Yes Patient H&P Reviewed: Yes Patient is NPO: Yes
[2017-10-13] MEDS ORDERED: SODIUM CHLORIDE FLUSH SYRINGE 10 ML IV PRN ×2 (08:00→11:30)
[2017-10-13] MEDS ORDERED: MORPHINE ONE (08:12)
[2017-10-13] MEDS ORDERED: PHENERGAN PO PRN (08:30)
[2017-10-13] MEDS ORDERED: ZOFRAN IV PRN (08:30)
[2017-10-13] MEDS ORDERED: PHENERGAN PR PRN (08:30)
[2017-10-13] MEDS ORDERED: BENADRYL IV PRN (08:30)
[2017-10-13] MEDS ORDERED: NARCAN 0.4 MG/1 ML IV PRN (08:30)
[2017-10-13] MEDS ORDERED: DILAUDID IV PRN (08:30)
[2017-10-13] MEDS ORDERED: DILAUDID ONE (08:49)
--- NOTE | 2017-10-13 09:13 | Ultrasound Report ---
LIMITED OB ULTRASOUND: Evaluate presentation. Gestation: Bray Position: Breech Heart Rate: 127 BPM The estimated gestational age is 39 weeks 2 days.
--- NOTE | 2017-10-13 09:14 | Operative Report ---
Operative Report Operative Report: Date of procedure: 10/13/2017 Pre-operative diagnosis: Breech Presentation, 39 weeks gestation with gestational diabetes and intrauterine growth retardation Post-operative diagnosis: Same Procedure name(s): Primary low transverse section Surgeon: Fede Cardenas MD Shampooer: Ira Paz, certified nurse pilot manager Anesthesia: Spinal EBL: 600cc Complications: None Findings: Normal uterus tubes and ovaries, female breech presentation, weight 5 lbs. 2 oz., Apgars 8 at 1 minute 9 at 5 minutes Specimen(s): Placenta Procedure: The patient was brought to the operating room. A spinal was placed without any complications. She was then placed in left lateral tilt. Prepped and draped in the usual sterile manner. After testing for adequate anesthesia level, a Pfannenstiel incision was made. This incision was taken down to the fascia. The fascia was then nicked in the midline. This incision was extended out laterally with Singer scissors. The fascia was then sharply and bluntly from the underlying rectus muscles. The rectus muscles were bluntly and sharply . The peritoneum was then entered with the insert molding operator's fingers. This incision was spread vertically with care not to damage the bladder below. The bladder flap was then formed sharply and bluntly with Metzenbaum scissors. A transverse incision was made in lower uterine segment. This incision was extended laterally with the operators fingers. The amniotic sac was then entered bluntly with the insert molding operator's fingers. Bladder blade was placed The was delivered by delivered in the breech first flexing and extending the lower extremities followed by raising the breech then sweeping flexing and extending the upper extremities and after coming head was then delivered safely. The was bulb suctioned on the mother's abdomen. Cord was double clamped and cut. The infant was then passed to the nursery personnel who were in attendance. The above scores were given by the nursery personnel. The placenta was then bluntly removed. The uterus was then externalized and wiped clean the remaining products. The uterine incision was closed in layers. The first incision was closed in a locking manner using 0 Vicryl. This was followed by imbricating stitch also with 0 Vicryl. This closure was hemostatic. The bladder flap was copiously irrigated and found to be hemostatic. The pelvis was copiously irrigated and found to be hemostatic. The uterus was then placed back to the patient's abdomen. The retractors were removed. The rectus muscles were inspected and found to be hemostatic. The fascia was then closed in a running manner using 0 Vicryl. This incision was hemostatic irrigation Bovie. The skin was reapproximated with 4-0 Vicryl subcuticularly. The patient tolerated procedure well. Her urine was clear. The was admitted to the well baby nursery. The patient was accompanied to recovery room in good condition. Instrument count correct 3.
[2017-10-13] MEDS ORDERED: NEO SYNEPHRINE/NS Syringe(OR USE) IV ONE (09:15)
[2017-10-13] MEDS ORDERED: TORADOL IV PRN (10:30)
[2017-10-13] MEDS ORDERED: ANCEF/NS 1 GM/50 ML 1 GM/50 ML BAG IV SCH (11:12)
[2017-10-13] MEDS ORDERED: LANSINOH TP PRN (11:30)
[2017-10-13] MEDS ORDERED: NACL 0.45% 1000 ML 1,000 ML IV SCH (11:30)
[2017-10-13] MEDS ORDERED: TYLENOL PO PRN (11:30)
[2017-10-13] MEDS ORDERED: NORCO 5/325 PO PRN (11:30)
[2017-10-13] MEDS ORDERED: TUCKS PAD TP PRN (12:00)
[2017-10-13] MEDS ORDERED: MYLICON PO PRN (12:00)
[2017-10-13] MEDS: TORADOL IV PRN ×2 (12:22→23:30)
--- NOTE | 2017-10-13 15:00 | Post Anesthesia Evaluation ---
- Post Anesthesia Evaluation Patient Participated: Yes Airway Patent: Yes Stable Respiratory Function: Yes Nausea/Vomiting: No Temp > 96.8F: Yes Pain Manageable: Yes Adequeate Hydration: Yes Anesthesia Complications: No Block Receding Appropriately: Yes Patient on Ventilator: No
[2017-10-13] MEDS: ceFAZolin 1 GM in NACL 0.9% 20 ML IV SCH (20:12)
[2017-10-13] MEDS ORDERED: SENOKOT PO PRN (22:00)
[2017-10-13] MEDS ORDERED: MILK OF MAGNESIA PO PRN (22:00)
[2017-10-13] MEDS ORDERED: ANUCORT-HC PR PRN (22:00)
[2017-10-13 22:08] LABS: Hematocrit 27.5 % (30.3-42.9); Hemoglobin 9.1 gm/dl (10.1-14.3)
[2017-10-14] MEDS: ceFAZolin 1 GM in NACL 0.9% 20 ML IV SCH (04:33)
[2017-10-14] MEDS: TORADOL IV PRN (04:47)
--- NOTE | 2017-10-14 08:21 | Progress Note ---
Assessment and Plan Patient doing well, no complaints. ambulating without difficulty. VSSAF, H&H dropped to 9.1/27.5 (asymptomatic for anemia), lochia scant. Continue postop pathway. - Patient Problems (1) delivery delivered Current Visit: Yes Status: Acute Subjective - Subjective Date of service: 10/14/17 Principal diagnosis: postop day #1 s/p primary c/s for breech Patient reports: appetite normal, voiding normally, pain well controlled, ambulating normally, no dizzy ambulation, no flatus, no nauseated [place]: doing well, nursing well Objective - Vital Signs Latest vital signs: Vital Signs Temp Pulse Resp BP BP Pulse Ox 10/14/17 05:30 98.0 F 18 98/60 10/14/17 01:19 98.0 F 90/52 10/14/17 00:00 98.3 F 85 18 98/60 97 10/13/17 20:10 98.4 F 76 18 102/58 98 10/13/17 17:05 98.0 F 72 18 98/60 95 10/13/17 10:15 98.9 F 83 18 113/67 10/13/17 09:15 98.3 F Intake and Output 10/13/17 10/14/17 10/14/17 23:59 07:59 15:59 Intake Total 360 Output Total 900 800 Balance -540 -800 Intake: Oral 360 Output: Urine 900 800 Indwelling Catheter 900 Void 800 Other: Total, Intake Amount 360 Total, Output Amount 900 800 - Exam Breasts: Present: normal, Cardiovascular: Present: Regular rate Lungs: Present: Clear to auscultation, Normal air movement Abdomen: Present: normal appearance, soft Vulva: both: normal Uterus: Present: normal, firm, fundal height at umbilicus Extremities: Present: normal Incision: Present: normal, dry, dressed (rn to remove dressing during AM care) - Labs Labs: Abnormal lab results 10/13/17 10/13/17 10/14/17 Range/Units 21:28 23:03 04:39 Hgb 9.1 L (10.1-14.3) gm/dl Hct 27.5 L (30.3-42.9) % POC Glucose 114 H 114 H (70-105)
[2017-10-14] MEDS: NORCO 5/325 PO PRN ×2 (14:14→21:41)
[2017-10-14] MEDS: MOTRIN PO PRN (14:15)
[2017-10-14] MEDS: FEOSOL PO SCH (14:16)
[2017-10-15] MEDS: FEOSOL PO SCH (09:02)
[2017-10-15] MEDS: MOTRIN PO PRN (09:02)
[2017-10-15] MEDS: NORCO 5/325 PO PRN (09:03)
--- NOTE | 2017-10-15 10:49 | Discharge Summary ---
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 pt doing well and desires d/ c home today. Condition at discharge: Good Disposition: - TO HOME OR SELFCARE Plan - Discharge Medications Prescriptions: Ferrous Sulfate [Feosol 325 MG tab] 325 mg PO BID #60 tablet Ibuprofen [Motrin 800 MG tab] 800 mg PO Q6H PRN #30 tablet PRN Reason: Pain oxyCODONE /ACETAMINOPHEN [Percocet 5/325 mg] 1 - 2 tab PO Q4H PRN #30 tablet PRN Reason: Pain, Moderate - Provider Discharge Summary Activity: routine, no sex for 6 weeks, no heavy lifting 4 weeks, no strenuous exercise Diet: routine Instructions: routine Additional instructions: [] Smoking cessation referral if applicable(refer to patient education folder for contact #) [] Refer to [facility]'s [facility] Booklet Call your doctor immediately for: * Fever > 100.5 * Heavy vaginal bleeding ( >1 pad per hour) * Severe persistent headache * Shortness of breath * Reddened, hot, painful area to leg or breast * Drainage or odor from incision. * Keep incision clean and dry at all times and follow doctor's instructions regarding bathing/showering - Follow up plan Follow up: ALONSO AZEVEDO MD [Primary Care Provider] - 7 Days Forms: [facility] Discharge Summary
[2017-10-15 17:17] VITALS: BP 125/80
== END 2017-10-15 13:30 | disposition home or self-care (01) | DRG 765 ==
LOC: LD 10-12 20:25 → OB 10-13 12:24
PROVIDERS: ADMIT Obstetrics & Gynecology; ATTEND Obstetrics & Gynecology
PROC: 10D00Z1 Extraction of Products of Conception, Low, Open Approach (ICD-10-PCS; principal; 2017-10-13)
DX: O32.1XX0 Maternal care for breech presentation, not applicable or unspecified (principal); O36.5930 Maternal care for other known or suspected poor fetal growth, third trimester, not applicable or unspecified; Z3A.39 39 weeks gestation of pregnancy; Z37.0 Single live birth; O32.0XX0 Maternal care for unstable lie, not applicable or unspecified; O24.420 Gestational diabetes mellitus in childbirth, diet controlled; O99.02 Anemia complicating childbirth; D57.3 Sickle-cell trait
CPT/HCPCS: 36415; 76815; 82962; 85014; 85018; 85025; 86592; 86850; 86900; 86901; 88307; 99211; A6250; G0463; J0690; J1170; J1885; J2270; J2370; J2590; J7120